=== PATIENT | female | born 1955 | race African-American/Black ===

== ENCOUNTER 2016-08-15 14:56 | Emergency (ER) | payer MEDICARE, OTHER ==
[2016-08-15 11:19] LABS: BASOPHILS 0.1 %; BASOPHILS ABSOLUTE 0.01 10/3/uL (0.0-0.16); EOSINOPHILS ABSOLUTE 0.07 10/3/uL (0.0-0.53); HEMOGLOBIN 14.2 g/dL (12.0-16.0); IMMATURE GRANULOCYTES 0.1 %; IMMATURE GRANULOCYTES ABSOLUTE 0.01 10/3/uL (0.0-0.11); LYMPHOCYTES 40.6 %; MANUAL DIFF NO %; MEAN CORPUSCULAR HEMOGLOB 31.7 pg (26.0-34.0); MEAN PLATELET VOLUME 9.2 fL (9.2-13.0); MONOCYTES 7.7 %; MONOCYTES ABSOLUTE 0.55 10/3/uL (0.21-1.20); NEUTROPHILS 50.5 %; PLATELET COUNT 292 10/3/uL (150-400); RBC DISTRIBUTION WIDTH 13.8 % (12.0-16.0); RED CELL COUNT 4.48 10/6/uL (4.0-5.6); WHITE BLOOD CELLS 7.1 10/3/uL (4.5-10.5)
[2016-08-15 11:25] LABS: ASCORBIC ACID (UR NOT ORDER) NEG (NEG); BILIRUBIN, URINE NEGATIVE (NEG); ER URINALYSIS TAT 0 Hrs 12 Mins; KETONE, URINE NEGATIVE (NEG); LEUKOCYTE ESTERASE(NOT OR NEG (NEG); NITRITE (URINE) NEG (NEG); WBC (NOT ORDERED) (RFLEX) < 1 (0-5)
[2016-08-15 11:35] LABS: A/G RATIO 1.2 (0.7-1.9); ALBUMIN 3.8 G/DL (3.5-5.0); ALKALINE PHOSPHATASE 51 U/L (45-117); BUN (BLOOD UREA NITROGEN) 11 MG/DL (6-23); CALCIUM, SERUM 9.1 MG/DL (8.5-10.4); CHLORIDE, SERUM 104 MMOL/L (96-112); CO2 (CARBON DIOXIDE) 31 MMOL/L (24-34); GFR AFRICAN AMERICAN 109 ML/MIN (>=60); GFR NON AFRICAN AMERICAN 94 ML/MIN (>=60); GLOBULIN 3.1 G/DL (2.5-4.1); GLUCOSE, SERUM 79 MG/DL (60-99); SGOT(AST) 11 U/L (5-40); SGPT(ALT) 14 U/L (5-65); SODIUM, SERUM 143 MMOL/L (135-148); TOTAL BILIRUBIN 0.6 MG/DL (0-1.2); TOTAL PROTEIN 6.9 G/DL (6.0-8.5)
[~2016-08-15 14:56] MED LIST: ACET500CAP PO; ALLEGRA180 PO; AMB10 PO; ANTARA130 MG PO; ASAB PO; ASAEC PO; ATV1 PO; BENTYL10 PO; BENTYL20 PO; BIEST SL; COZ50 PO; DIL2TAB PO; DIOV160 PO; ENDOCET1 TA3 PO; FLEX PO; HORMONE PILL; HORMONE REPLACEMENT PO; JUICE PLUS PO; KLOR-CON 1010 MEQ PO; LIDODERM T; MAGOX4 PO; MAX25 PO; MSCONT15 PO; NEUR300 PO; NEUR600 PO; NEXIUM40 PO; NORCO1 TAB PO; NORV5 PO; PROAIR HFA INH; PROGEST SL; PROTONIX PO; PROVHFA INH; T PO; TESTOS SL; TRAZ50 PO; V2 PO; VERELAN240 MG PO; VISKEN10 PO; WELLSR150 PO; ZOCOR20 PO; ZOFRAN4 PO; [UNRECOGNIZED DRUG - OTHER] PO
== END 2016-08-15 16:14 | disposition home or self-care (01) ==
LOC: ER 14:56
PROVIDERS: Emergency Medicine
DX: K59.00 Constipation, unspecified (principal); J45.909 Unspecified asthma, uncomplicated; J44.9 Chronic obstructive pulmonary disease, unspecified; I10 Essential (primary) hypertension; K21.9 Gastro-esophageal reflux disease without esophagitis; F17.200 Nicotine dependence, unspecified, uncomplicated; Z90.710 Acquired absence of both cervix and uterus; Z88.1 Allergy status to other antibiotic agents; Z88.8 Allergy status to other drugs, medicaments and biological substances; Z79.82 Long term (current) use of aspirin; Z79.899 Other long term (current) drug therapy
CPT/HCPCS: 74176; 80053; 81001; 83690; 85025; 87040; 99285